=== PATIENT | female | born 1965 | race African-American/Black ===

== ENCOUNTER 2017-07-15 05:42 | Emergency (ER) | payer MEDICAID ==
[~2017-07-15] VITALS: Ht 157.5 cm; Wt 109.0 kg
[2017-07-15] MEDS ORDERED: IPRATROPIUM/ALBUTEROL 0.5-3(2.5)MG/3ML NEB HHN ONE (08:00)
[2017-07-15 09:30] VITALS: BP 158/77
== END 2017-07-15 09:32 | disposition home or self-care (01) ==
LOC: ER 09:23
DX: J20.9 Acute bronchitis, unspecified (principal); I10 Essential (primary) hypertension; J45.909 Unspecified asthma, uncomplicated; F12.90 Cannabis use, unspecified, uncomplicated; Z90.710 Acquired absence of both cervix and uterus
CPT/HCPCS: 71045; 81025; 94640; 99283; J7620; Z7610

== ENCOUNTER 2017-10-21 16:15 | Emergency (ER) | payer MEDICAID ==
[~2017-10-21] VITALS: Ht 157.5 cm; Wt 112.4 kg
[2017-10-21 16:21] VITALS: BP 167/89
== END 2017-10-21 19:30 | disposition left against medical advice (07) ==
LOC: ER 19:29
DX: R20.2 Paresthesia of skin (principal); Z53.21 Procedure and treatment not carried out due to patient leaving prior to being seen by health care provider